=== PATIENT | female | born 1945 | race Caucasian/White ===

== ENCOUNTER 2019-02-14 08:49 | Emergency (ER) | payer MEDICARE ==
[~2019-02-14] VITALS: Ht 182.9 cm; Wt 61.8 kg
[2019-02-14 09:33] VITALS: BP 115/69
[2019-02-14 09:41] LABS: BASOPHILS # (AUTO) 0.04 x10^3/uL (0-0.1); BASOPHILS % (AUTO) 1 % (0-1); EOSINOPHILS # (AUTO) 0.09 x10^3/uL (0-0.4); EOSINOPHILS % (AUTO) 2 % (1-7); LYMPHOCYTES # (AUTO) 1.47 x10^3/uL (1-3.4); LYMPHOCYTES % (AUTO) 26 % (22-44); MD NO; MEAN CORPUSCULAR HEMOGLOBIN 31.6 pg (27.0-34.8); MEAN CORPUSCULAR HGB CONC 33.6 g/dL (32.4-35.8); MEAN PLATELET VOLUME 7.8 fL (7.4-10.4); MONOCYTES # (AUTO) 0.47 x10^3/uL (0.2-0.8); MONOCYTES % (AUTO) 8 % (2-9); NEUTROPHILS # (AUTO) 3.67 x10^3/uL (1.8-6.8); NEUTROPHILS % (AUTO) 64 % (42-75); PLATELET COUNT 273 x10^3/uL (130-400); RED BLOOD COUNT 4.64 x10^6/uL (3.82-5.3); RED CELL DISTRIBUTION WIDTH 13.2 % (9.6-15.2)
--- NOTE | 2019-02-14 09:50 | NUR ---
PT HERE WITH C/O C/P, INTERMITTENT BUT SHARP, L CHEST, NO RADIATION, AGGRAVATING, OR ALEVIATING FACTORS. PT AAO X 4, NAD, ROOM AIR. PT DRESSED IN GOWN AND ATTACHED TO MONITOR. PT STATES NO MEDICAL HX OR DAILY MEDS. PIV ESTABLISHED BY THIS RN AND LABS DRAWN. SIDERAIL X [address] MD AT BEDSIDE FOR EXAM AND IN ROOM. PT'S OFTEN ANSWERING QUESTIONS FOR PT, PT EDUCATED ON NEED TO ANSWER QUESTIONS HERSELF, PT VERBALIZED UNDERSTANDING. CALL LIGHT WITHIN REACH.
[2019-02-14 09:51] LABS: ALANINE AMINOTRANSFERASE 34 U/L (12-78); ALBUMIN 4.1 g/dL (3.4-5.0); ANION GAP 5 mmol/L (5-15); CALCIUM 9.4 mg/dL (8.5-10.1); CHLORIDE 109 mmol/L (98-107); CREATININE 0.85 mg/dL (0.55-1.02)
[2019-02-14 09:56] LABS: ALKALINE PHOSPHATASE 96 U/L (45-117); BILIRUBIN,TOTAL 0.5 mg/dL (0.2-1.0); TOTAL PROTEIN 7.7 g/dL (6.4-8.2); TROPONIN I < 0.015 ng/mL (0.000-0.045)
--- NOTE | 2019-02-14 09:57 | NUR ---
XRAY TO BEDSIDE.
--- NOTE | 2019-02-14 10:12 | NUR ---
ALL RESULTS BACK AT THIS TIME, CHART UP FOR RECHECK. MD TO BEDSIDE FOR DISCUSSION OF POC.
--- NOTE | 2019-02-14 10:59 | NUR ---
Patient/Caregiver given discharge instructions and they have confirmed that they understand the instructions. Patient ambulatory with steady gait. PIV REMOVED.
== END 2019-02-14 11:01 | disposition home or self-care (01) ==
LOC: ED 10:42
DX: R07.89 Other chest pain (principal); R53.1 Weakness
CPT/HCPCS: 36415; 71045; 80053; 84484; 85025; 93005; 99284